=== PATIENT | female | born 1945 | race Caucasian/White ===

== ENCOUNTER 2024-06-19 12:47 | Observation (INO) | payer OTHER, SELFPAY ==
[2024-06-19] VITALS (16 sets, daily range): BP systolic 114–156; BP diastolic 52–80; PULSE 100–123; BMI 20.7; BMI 21.2
--- NOTE | 2024-06-19 02:12 | ED.GENMED ---
History of Present Illness
<Annette Belle PA-C - Last Filed: 06/24/24 10:01>
General
Chief Complaint: Fainting Sensation
Source: patient
Exam Limitations: none
Time Seen by Provider: 06/19/24 01:50
Nursing documentation reviewed up to this point in time: agreed with
History of Present Illness
History of Present Illness:
PT IS A 78 Y/O F
h/o breast ca s/p mastectomy and radiation 2019
on oral treatment
here with near syncope
says she was feeling well ealrlier in the night, played cards with friends
on walk back to her apt she was cold but it was chilly outside. she walked to her apt and got warm and drak some tea. she was feeling ready for bed, went to the bathroom and suddenly felt lightheaded. she denies that she felt dizzy but then felt
weak and lowered herself to the ground onto her buttocks, she didn't fall
sat on her bottom for a little and scooted forward to get her phone to call 911
she now feels ok, denies pain, headache, cp,s ob, cough, cold symptoms, urinary sypmptoms, vomiting, nausea, diarreha
she had a near passing out episode one other time last year when she had diarrhea
she feels a little shaky here, but thinks she is anxious
Past History
<Annette Belle PA-C - Last Filed: 06/24/24 10:01>
Past History
ED Past Medical History: Cancer
ED Past Surgical History: Gynecological (mastectomy)
Social History
Tobacco: Non-smoker
Alcohol: None
Drug: None
Personal: Single
Living: alone
Review of Systems
<Annette Belle PA-C - Last Filed: 06/24/24 10:01>
Review of Systems
Allergies reviewed?: Yes
All Other Systems: Not applicable
Phy Exam
<Annette Belle PA-C - Last Filed: 06/24/24 10:01>
Physical Exam
Physical Exam:
GENERAL: Alert , in no apparent distress, nontoxic appearing
EYE: pupils equal and reactive
NECK: Supple
ENT: o/p clr, mmm.
CARDIAC: tachycardic, no edema
LUNGS: Clear breath sounds bilaterally, no acute respiratory distress, no wheezes/rales/rhonchi
ABDOMEN: Soft, without focal tenderness, no r/g, no cvat, normal bowel sounds
NEUROLOGICAL: Alert and oriented, no focal neuro deficits
SKIN: Warm and dry, skin intact. no obvious rash
MUSCULOSKELETAL: No edema, well perfused. neg meng's sign
PSYCH: Normal and appropriate interaction.
Course
<Annette Belle PA-C - Last Filed: 06/24/24 10:01>
Orders/Labs/Results
Orders:
Orders
06/19/24 01:49
Electrocardiogram (*1) Urgent
Reason for Study: Chest Pain
Cardiac Monitoring- Treatment ONCE
EKG- Treatment ONCE
IV Insert/Care/Rem.- Treatment PRN
O2 Therapy [RESP] Urgent
Titrate/Wean O2 to maintain O2 sat greater than (%): 90
Special Instructions: Maintain sats >/=90%
Pulse Ox/spot Check [RESP] Urgent
Quantity: 1
Special Instructions: ON ROOM AIR
06/19/24 02:10
Basic Metabolic Panel Urgent
Complete Blood Count/With Diff Urgent
06/19/24 02:11
Orthostatic VS- Treatment ONCE
06/19/24 02:31
0.9% Sodium Chloride 500 ml [Nss] 500 ml IV BOLUS
06/19/24 02:35
Acetaminophen [Tylenol] 650 mg PO NOW STA
06/19/24 03:02
COVID-19 Antigen Urgent
Source: Nasal Swab
Lactic Acid Urgent
Blood Culture Urgent
ORIN Source: Blood/Venous
Specimen Description:
Influenza A+B Rapid Molecular Urgent
ORIN Source: Nasal Swab
Specimen Description:
06/19/24 03:43
Urinalysis Reflex To Culture Urgent
Date Specimen was Collected: 06/19/24
Time Specimen was Collected: 03:42
Urine Microscopic Reflex Cult Urgent
06/19/24 05:15
CR Chest - 2 Views Urgent
Comment:
Reason For Exam: acute fever, cough
06/19/24 06:35
Encourage PO Hydration-Treatme ONCE
06/19/24 Lunch
Regular
At Your Request: Full Participation
Does patient need a safe tray?: No
06/19/24 10:12
US Periph Venous LOWER Ext Dain Urgent
Comment:
Reason For Exam: fever
06/19/24 11:49
Admit/Transfer Patient As Directed
Co-Sign Provider:
Level of Care: Observation services
Assign to:: Telemetry
Physician / Group: Dr. Noman Tai
Diagnosis: Fever, weakness
Reason for Telemetry: Arrhythmia
Date to Stop Telemetry: 06/22/24
Time to Stop Telemetry: 11:00
PRN Pain Medication Management As Directed
May give lesser potent ordered pain med per pt: Yes
preference::
Protocol:: Medication orders for pain may be administered in a
manner that supports deferring to patient preference
when the pt is:
- Requesting an ordered lesser potent pain medication.
Least to most potent pain medications are defined
as: acetaminophen < NSAID < tramadol < opioids
(morphine, oxycodone, hydromorphone).
- Requesting a lesser dose of the same medication IF
ORDERED.
- Requesting a less intrusive route of administration
if both routes are prescribed by the provider (PO <
IV).
06/19/24 11:51
Code Status As Directed
Resuscitation Status: Full Code
06/19/24 11:54
CT Chest Pe Study Routine
Comment:
Reason For Exam: PE
06/19/24 11:56
Echo 2D MMode Color/Doppler Routine
Reason for Study: Weakness, lightheadedness
Orthostatic Vital Signs As Directed
Orthostatic VS Frequency: BID
06/19/24 11:57
Ot Eval And Treat Routine
Pt Eval And Treat Routine
Activity Level: As Tolerated
06/19/24 15:45
Acetaminophen [Tylenol] 650 mg PO Q6HPRN PRN
Bisacodyl [Dulcolax] 10 mg RECTAL [id number] PRN
Docusate W/Senna [Senokot-S] 1 tablet PO BIDPRN PRN
Polyethylene Glycol Powder [Miralax] 17 grams PO DAILYPRN PRN
06/19/24 15:45
Activity As Directed
Activity Level: As Tolerated
Pneumatic Compression Sleeves As Directed
Type: Knee high
Vital Signs As Directed
Frequency: Per unit guidelines
DX Deep Vein Thrombosis Video Routine
06/19/24 16:04
Troponin I Q6H
Blood Culture Routine
ORIN Source: Blood/Venous
Specimen Description:
06/19/24 18:00
Enoxaparin Sodium [Lovenox] 40 mg SC QPM
06/19/24 20:00
Calcium Carbonate/Vitamin D3 [Oscal 500 + D] 500 mg PO BID
06/19/24 22:00
Latanoprost [Xalatan Ophthalmic Solution] 1 drop BOTH EYES HS
06/19/24 22:32
Troponin I Q6H
06/20/24 03:45
Troponin I Q6H
06/20/24 08:00
Anastrozole [Arimidex] 1 mg PO DAILY
Cholecalciferol (Vitamin D3) [VITAMIN D3 (cholecalciferol)] 25 mcg PO DAILY
Magnesium Oxide 250 mg PO DAILY
06/20/24 09:29
Complete Blood Count/With Diff IN AM
Comprehensive Metabolic Panel IN AM
Magnesium IN AM
06/22/24 11:00
DC Protocol for Telemetry ONCE
Abnormal Lab Results
06/19/24 06/19/24
02:10 03:43
MCH 31.7 H pg
(27.0-31.0)
MPV 10.5 H fL
(7.4-10.4)
Absolute Neuts (auto) 6.9 H 10^3/uL
(1.4-6.5)
Absolute Lymphs (auto) 0.6 L 10^3/uL
(1.2-3.4)
Neutrophils % 85.8 H %
(42.2-75.2)
Lymphocytes % 6.9 L %
(20.5-51.1)
Creatinine 0.5 L mg/dL
(0.6-1.0)
Glucose 161 H mg/dl
(70-99)
Leukocyte Esterase Rfl Trace A
(Negative)
Urine Bacteria (Reflex) Few A
(Negative)
06/19/24 02:10
06/19/24 02:10
Vital Signs
Initial and Last Documented VS:
Initial Vital Signs
Temp Pulse Resp BP Pulse Ox
98.4 F 111 15 149/73 98
06/19/24 02:00 06/19/24 02:00 06/19/24 02:00 06/19/24 02:00 06/19/24 02:00
Last Documented Vital Signs
Temp Pulse Resp BP Pulse Ox
98.4 F 89 19 127/68 95
06/20/24 11:00 06/20/24 11:00 06/20/24 11:00 06/20/24 11:00 06/20/24 11:00
<Piper Mar, DO - Last Filed: 06/19/24 06:37>
Orders/Labs/Results
Orders:
Orders
06/19/24 01:49
Electrocardiogram (*1) Urgent
Reason for Study: Chest Pain
Cardiac Monitoring- Treatment ONCE
EKG- Treatment ONCE
IV Insert/Care/Rem.- Treatment PRN
O2 Therapy [RESP] Urgent
Titrate/Wean O2 to maintain O2 sat greater than (%): 90
Special Instructions: Maintain sats >/=90%
Pulse Ox/spot Check [RESP] Urgent
Quantity: 1
Special Instructions: ON ROOM AIR
06/19/24 02:10
Basic Metabolic Panel Urgent
Complete Blood Count/With Diff Urgent
06/19/24 02:11
Orthostatic VS- Treatment ONCE
06/19/24 02:31
0.9% Sodium Chloride 500 ml [Nss] 500 ml IV BOLUS
06/19/24 02:35
Acetaminophen [Tylenol] 650 mg PO NOW STA
06/19/24 03:02
COVID-19 Antigen Urgent
Source: Nasal Swab
Lactic Acid Urgent
Blood Culture Urgent
ORIN Source: Blood/Venous
Specimen Description:
Influenza A+B Rapid Molecular Urgent
ORIN Source: Nasal Swab
Specimen Description:
06/19/24 03:43
Urinalysis Reflex To Culture Urgent
Date Specimen was Collected: 06/19/24
Time Specimen was Collected: 03:42
Urine Microscopic Reflex Cult Urgent
06/19/24 05:15
CR Chest - 2 Views Urgent
Comment:
Reason For Exam: acute fever, cough
06/19/24 06:35
Encourage PO Hydration-Treatme ONCE
06/19/24 Lunch
Regular
At Your Request: Full Participation
Does patient need a safe tray?: No
06/19/24 10:12
US Periph Venous LOWER Ext Dain Urgent
Comment:
Reason For Exam: fever
06/19/24 11:49
Admit/Transfer Patient As Directed
Co-Sign Provider:
Level of Care: Observation services
Assign to:: Telemetry
Physician / Group: Dr. Noman Tai
Diagnosis: Fever, weakness
Reason for Telemetry: Arrhythmia
Date to Stop Telemetry: 06/22/24
Time to Stop Telemetry: 11:00
PRN Pain Medication Management As Directed
May give lesser potent ordered pain med per pt: Yes
preference::
Protocol:: Medication orders for pain may be administered in a
manner that supports deferring to patient preference
when the pt is:
- Requesting an ordered lesser potent pain medication.
Least to most potent pain medications are defined
as: acetaminophen < NSAID < tramadol < opioids
(morphine, oxycodone, hydromorphone).
- Requesting a lesser dose of the same medication IF
ORDERED.
- Requesting a less intrusive route of administration
if both routes are prescribed by the provider (PO <
IV).
06/19/24 11:51
Code Status As Directed
Resuscitation Status: Full Code
06/19/24 11:54
CT Chest Pe Study Routine
Comment:
Reason For Exam: PE
06/19/24 11:56
Echo 2D MMode Color/Doppler Routine
Reason for Study: Weakness, lightheadedness
Orthostatic Vital Signs As Directed
Orthostatic VS Frequency: BID
06/19/24 11:57
Ot Eval And Treat Routine
Pt Eval And Treat Routine
Activity Level: As Tolerated
06/19/24 15:45
Acetaminophen [Tylenol] 650 mg PO Q6HPRN PRN
Bisacodyl [Dulcolax] 10 mg RECTAL [id number] PRN
Docusate W/Senna [Senokot-S] 1 tablet PO BIDPRN PRN
Polyethylene Glycol Powder [Miralax] 17 grams PO DAILYPRN PRN
06/19/24 15:45
Activity As Directed
Activity Level: As Tolerated
Pneumatic Compression Sleeves As Directed
Type: Knee high
Vital Signs As Directed
Frequency: Per unit guidelines
DX Deep Vein Thrombosis Video Routine
06/19/24 16:04
Troponin I Q6H
Blood Culture Routine
ORIN Source: Blood/Venous
Specimen Description:
06/19/24 18:00
Enoxaparin Sodium [Lovenox] 40 mg SC QPM
06/19/24 20:00
Calcium Carbonate/Vitamin D3 [Oscal 500 + D] 500 mg PO BID
06/19/24 22:00
Latanoprost [Xalatan Ophthalmic Solution] 1 drop BOTH EYES HS
06/19/24 22:32
Troponin I Q6H
06/20/24 03:45
Troponin I Q6H
06/20/24 08:00
Anastrozole [Arimidex] 1 mg PO DAILY
Cholecalciferol (Vitamin D3) [VITAMIN D3 (cholecalciferol)] 25 mcg PO DAILY
Magnesium Oxide 250 mg PO DAILY
06/20/24 09:29
Complete Blood Count/With Diff IN AM
Comprehensive Metabolic Panel IN AM
Magnesium IN AM
06/22/24 11:00
DC Protocol for Telemetry ONCE
Abnormal Lab Results
06/19/24 06/19/24
02:10 03:43
MCH 31.7 H pg
(27.0-31.0)
MPV 10.5 H fL
(7.4-10.4)
Absolute Neuts (auto) 6.9 H 10^3/uL
(1.4-6.5)
Absolute Lymphs (auto) 0.6 L 10^3/uL
(1.2-3.4)
Neutrophils % 85.8 H %
(42.2-75.2)
Lymphocytes % 6.9 L %
(20.5-51.1)
Creatinine 0.5 L mg/dL
(0.6-1.0)
Glucose 161 H mg/dl
(70-99)
Leukocyte Esterase Rfl Trace A
(Negative)
Urine Bacteria (Reflex) Few A
(Negative)
06/19/24 02:10
06/19/24 02:10
Vital Signs
Initial and Last Documented VS:
Initial Vital Signs
Temp Pulse Resp BP Pulse Ox
98.4 F 111 15 149/73 98
06/19/24 02:00 06/19/24 02:00 06/19/24 02:00 06/19/24 02:00 06/19/24 02:00
Last Documented Vital Signs
Temp Pulse Resp BP Pulse Ox
98.4 F 89 19 127/68 95
06/20/24 11:00 06/20/24 11:00 06/20/24 11:00 06/20/24 11:00 06/20/24 11:00
Luislt;Stefan Valdez DO - Last Filed: 06/19/24 10:14>
Orders/Labs/Results
Orders:
Orders
06/19/24 01:49
Electrocardiogram (*1) Urgent
Reason for Study: Chest Pain
Cardiac Monitoring- Treatment ONCE
EKG- Treatment ONCE
IV Insert/Care/Rem.- Treatment PRN
O2 Therapy [RESP] Urgent
Titrate/Wean O2 to maintain O2 sat greater than (%): 90
Special Instructions: Maintain sats >/=90%
Pulse Ox/spot Check [RESP] Urgent
Quantity: 1
Special Instructions: ON ROOM AIR
06/19/24 02:10
Basic Metabolic Panel Urgent
Complete Blood Count/With Diff Urgent
06/19/24 02:11
Orthostatic VS- Treatment ONCE
06/19/24 02:31
0.9% Sodium Chloride 500 ml [Nss] 500 ml IV BOLUS
06/19/24 02:35
Acetaminophen [Tylenol] 650 mg PO NOW STA
06/19/24 03:02
COVID-19 Antigen Urgent
Source: Nasal Swab
Lactic Acid Urgent
Blood Culture Urgent
ORIN Source: Blood/Venous
Specimen Description:
Influenza A+B Rapid Molecular Urgent
ORIN Source: Nasal Swab
Specimen Description:
06/19/24 03:43
Urinalysis Reflex To Culture Urgent
Date Specimen was Collected: 06/19/24
Time Specimen was Collected: 03:42
Urine Microscopic Reflex Cult Urgent
06/19/24 05:15
CR Chest - 2 Views Urgent
Comment:
Reason For Exam: acute fever, cough
06/19/24 06:35
Encourage PO Hydration-Treatme ONCE
06/19/24 Lunch
Regular
At Your Request: Full Participation
Does patient need a safe tray?: No
06/19/24 10:12
US Periph Venous LOWER Ext Dain Urgent
Comment:
Reason For Exam: fever
06/19/24 11:49
Admit/Transfer Patient As Directed
Co-Sign Provider:
Level of Care: Observation services
Assign to:: Telemetry
Physician / Group: Dr. Noman Tia
Diagnosis: Fever, weakness
Reason for Telemetry: Arrhythmia
Date to Stop Telemetry: 06/22/24
Time to Stop Telemetry: 11:00
PRN Pain Medication Management As Directed
May give lesser potent ordered pain med per pt: Yes
preference::
Protocol:: Medication orders for pain may be administered in a
manner that supports deferring to patient preference
when the pt is:
- Requesting an ordered lesser potent pain medication.
Least to most potent pain medications are defined
as: acetaminophen < NSAID < tramadol < opioids
(morphine, oxycodone, hydromorphone).
- Requesting a lesser dose of the same medication IF
ORDERED.
- Requesting a less intrusive route of administration
if both routes are prescribed by the provider (PO <
IV).
06/19/24 11:51
Code Status As Directed
Resuscitation Status: Full Code
06/19/24 11:54
CT Chest Pe Study Routine
Comment:
Reason For Exam: PE
06/19/24 11:56
Echo 2D MMode Color/Doppler Routine
Reason for Study: Weakness, lightheadedness
Orthostatic Vital Signs As Directed
Orthostatic VS Frequency: BID
06/19/24 11:57
Ot Eval And Treat Routine
Pt Eval And Treat Routine
Activity Level: As Tolerated
06/19/24 15:45
Acetaminophen [Tylenol] 650 mg PO Q6HPRN PRN
Bisacodyl [Dulcolax] 10 mg RECTAL [id number] PRN
Docusate W/Senna [Senokot-S] 1 tablet PO BIDPRN PRN
Polyethylene Glycol Powder [Miralax] 17 grams PO DAILYPRN PRN
06/19/24 15:45
Activity As Directed
Activity Level: As Tolerated
Pneumatic Compression Sleeves As Directed
Type: Knee high
Vital Signs As Directed
Frequency: Per unit guidelines
DX Deep Vein Thrombosis Video Routine
06/19/24 16:04
Troponin I Q6H
Blood Culture Routine
ORIN Source: Blood/Venous
Specimen Description:
06/19/24 18:00
Enoxaparin Sodium [Lovenox] 40 mg SC QPM
06/19/24 20:00
Calcium Carbonate/Vitamin D3 [Oscal 500 + D] 500 mg PO BID
06/19/24 22:00
Latanoprost [Xalatan Ophthalmic Solution] 1 drop BOTH EYES HS
06/19/24 22:32
Troponin I Q6H
06/20/24 03:45
Troponin I Q6H
06/20/24 08:00
Anastrozole [Arimidex] 1 mg PO DAILY
Cholecalciferol (Vitamin D3) [VITAMIN D3 (cholecalciferol)] 25 mcg PO DAILY
Magnesium Oxide 250 mg PO DAILY
06/20/24 09:29
Complete Blood Count/With Diff IN AM
Comprehensive Metabolic Panel IN AM
Magnesium IN AM
06/22/24 11:00
DC Protocol for Telemetry ONCE
Abnormal Lab Results
06/19/24 06/19/24
02:10 03:43
MCH 31.7 H pg
(27.0-31.0)
MPV 10.5 H fL
(7.4-10.4)
Absolute Neuts (auto) 6.9 H 10^3/uL
(1.4-6.5)
Absolute Lymphs (auto) 0.6 L 10^3/uL
(1.2-3.4)
Neutrophils % 85.8 H %
(42.2-75.2)
Lymphocytes % 6.9 L %
(20.5-51.1)
Creatinine 0.5 L mg/dL
(0.6-1.0)
Glucose 161 H mg/dl
(70-99)
Leukocyte Esterase Rfl Trace A
(Negative)
Urine Bacteria (Reflex) Few A
(Negative)
06/19/24 02:10
06/19/24 02:10
Vital Signs
Initial and Last Documented VS:
Initial Vital Signs
Temp Pulse Resp BP Pulse Ox
98.4 F 111 15 149/73 98
06/19/24 02:00 06/19/24 02:00 06/19/24 02:00 06/19/24 02:00 06/19/24 02:00
Last Documented Vital Signs
Temp Pulse Resp BP Pulse Ox
98.4 F 89 19 127/68 95
06/20/24 11:00 06/20/24 11:00 06/20/24 11:00 06/20/24 11:00 06/20/24 11:00
<Annette Belle PA-C - Last Filed: 06/24/24 10:01>
MDM/Problems Addressed
Differential Diagnosis Includes:
sepsis, bacteremia, uti, covid, flu, near syncope
MDM/Problems Addressed:
78 y/o F
breast ca
here with near syncope and shaking chills
she started with chills ffirst but presumed it was due to walking outside int he cold
she then got warm and watched tv for a little
when she got up she walked to the [place] nd felt lighhteaded and then didn't have the strength and sat on the groun
no LOC
no preceeding cp, sob
she feels well now
tachycardic but initially afebrile
rectal temp + 101
brando w/u for bacteremia/sepsis
ekg is sinus tach with L axis deviation no old ekg; no st elevation/depression
signed out to dr. mar.
<Piper Mar DO - Last Filed: 06/19/24 06:37>
*Radiology
Radiology exam reviewed: preliminary read by ED provider (Chest x-ray is unremarkable. No evidence of infiltrate.)
*Pulse Oximetry
Patient hypoxic: no
*EKG
Interpreted by ED Provider?: Yes
Comparison EKG: no comparison EKG present
Rate: tachycardiac
Rhythm: sinus
Lima: left axis deviation
Interval: normal interval
QRS Pattern: poor R-wave progression
Ischemia: no ischemia
*Mucker Operator Interpretation
Rate: tachycardiac
Interpretation: abnormal
Rhythm: sinus
*Critical Care Note
Total Time (30-74mins, 75-104mins- exclusive of procedures): Not Applicable
<DO Melissa Lovell Last Filed: 06/19/24 10:14>
Update Note
Update Note:
0951---Pt's ride arrived and when pt was helped up to be discharged she was observed to be too weak to stand or walk on her own. Pt lives alone and is typically very active. She does no use a cane or walker. Work-up thus far does not show source
for fever. Pt not safe for discharge. Will discuss hospitalization with hospitalist. Oral temp normal but will recheck rectal temp
ED Attending Note
<Annette Belle PA-C - Last Filed: 06/24/24 10:01>
-
Portions of this chart may have been created with voice recognition software.� Occasional wrong word or��sound alike� substitutions may have occurred due to the inherent limitations of voice recognition software.
<Piper Mar DO - Last Filed: 06/19/24 06:37>
ED Attending Note
Patient seen and examined by attending physician: Yes
I performed a history and physical exam of patient and discussed management with resident, I reviewed resident's note and agree with documented findings and plan of care.: Yes
ED Attending Note:
This is a 78-year-old woman who resides at home alone, independently. She has history of breast cancer status post left mastectomy 2018, adjuvant XRT and maintained on letrozole. No history of recurrence.
She presents tonight with episode of generalized weakness, questionable near syncope, shaking chills and was found to be mildly tachycardic, warm to touch and rectal temp she was found to be acutely febrile at 101.3 �F. Patient does note rare
intermittent cough which she attributes to postnasal drip. No chest pain nor shortness of breath, no abdominal pain, no nausea nor vomiting, no dysuria and urgency and or hematuria. No rash.
78-year-old woman appears her stated age, awake and alert, pleasant, appears in no acute distress. Acutely febrile. Mildly tachycardic. Normotensive.
HEENT: Oral mucosa is moist.
Neck is supple without meningismus nor adenopathy.
Heart is regular rhythm, mildly tachycardic without murmur nor rub.
Lungs with scant rales left base otherwise clear to auscultation.
Abdomen is soft and nontender.
Acute febrile illness, concern for acute viral syndrome, bacteremia, pneumonia, UTI, febrile reaction to recent COVID booster vaccine.
Fever has been treated with an oral dose of Tylenol and will initiate IV fluids.
Labs are pending including lactic acid, urinalysis. Will check COVID and influenza. Due to shaking chills, concern for bacteremia, will check blood cultures.
Will check chest x-ray as well.
06/19/2024 0630 AM
Chest x-ray is unremarkable.
Labs are unremarkable with normal white blood cell count, unremarkable chemistries. Lactic acid is normal. Urinalysis is unremarkable. COVID and flu testing are negative.
At this point acute febrile illness appears viral in nature. Other consideration is acute fever related to bivalent COVID booster she received 2 days ago. No evidence of bacterial source but blood cultures are pending.
Will plan for discharge to home with recommendations to stay well-hydrated on a daily basis, continue Tylenol every 4 hours as needed for fever, rest.
Prompt follow-up with PCP for recheck.
Return precautions discussed.
Discharge Plan
Departure
Patient Disposition: Admit
Date of Disposition: 06/19/24
Time of Disposition: 06:35
Admit to: Med/Surg
Presentation/result/management discussed w/ accepting MD/DO: Hospitalist
Patient with high blood pressure during this ER visit?: No
Condition: Fair
Discharge Problem:
Acute febrile illness
Interventions
Interventions:
*Risk Screen - Suicide Last Done: 06/19/24 02:00
*General Assessment Last Done: 06/19/24 02:00
*Neglect/Abuse Screening Last Done: 06/19/24 02:00
ED- Fall Risk Assessment Last Done: 06/19/24 02:00
*ED COVID-19 Vaccine History Last Done: 06/19/24 02:00
*Nursing Disposition Last Done: 06/19/24 06:57
ED- Cardiac Assessment Last Done: 06/19/24 02:30
ED- Neurological Assessment Last Done: 06/19/24 02:30
Discharge Date and Time
Discharge Date/Time: 06/19/24 15:18
[2024-06-19 02:26] LABS: % Basophils 0.5 % (0-2); % Eosinophils 0.5 % (0-6); % Immature Granulocytes 0.4 % (0-0.5); % Lymphocytes 6.9 % (20.5-51.1); % Monocytes 5.9 % (1.7-9.3); % Neutrophils 85.8 % (42.2-75.2); Absolute Lymphocytes 0.6 10^3/uL (1.2-3.4); Absolute Monocytes 0.5 10^3/uL (0.1-0.6); Absolute Neutrophils 6.9 10^3/uL (1.4-6.5); Hematocrit 42.6 % (37.0-47.0); Hemoglobin 14.9 g/dL (12.0-16.0); Mean Corpuscular Hgb 31.7 pg (27.0-31.0); Mean Corpuscular Volume 90.6 fL (81.0-99.0); Mean Platelet Volume 10.5 fL (7.4-10.4); Nucleated Red Blood Cells % 0 %; Platelet Count 181 10^3/uL (130-400); Red Cell Dist. Width 11.8 % (11.5-14.5); White Blood Cell Count 8.1 10^3/uL (4.8-10.8)
[2024-06-19 02:34] LABS: Blood Urea Nitrogen 15 mg/dl (7-17); Calcium 9.5 mg/dl (8.4-10.2); Carbon Dioxide 25 mmol/L (22-30); Chloride 101 mmol/L (98-107); Estimated Creatinine Clearance 72 ml/min; Glucose 161 mg/dl (70-99); Sodium 138 mmol/L (135-145); eGFR > 60.00
[2024-06-19] MEDS: TYLENOL 650 MG PO (02:40)
[2024-06-19] MEDS: NSS 500 IV (02:41)
[2024-06-19 03:42] LABS: COVID-19 Antigen Negative (Negative)
[2024-06-19 04:02] LABS: Lactic Acid 1.7 mmol/L (0.7-2.0)
[2024-06-19 04:11] LABS: Urine Albumin Negative (Neg - Trace); Urine Bilirubin Negative (Negative); Urine Character Clear (Clear); Urine Color Yellow; Urine Glucose Negative (Negative); Urine Ketone Negative (Negative); Urine Leukocyte Trace (Negative); Urine Nitrite Negative (Negative); Urine Occult Blood Negative (Negative); Urine Urobilinogen Negative (Neg - 1+)
[2024-06-19 05:29] LABS: Urine Bacteria Few (Negative); Urine Red Blood Cell 0-2 /HPF (0-2); Urine White Cell 0-2 /HPF (0-5)
[2024-06-19 16:36] LABS: Troponin I < 0.012 ng/ml
[2024-06-19] MEDS: LOVENOX 40 MG SC (17:11)
--- NOTE | 2024-06-19 17:42 | HPS.HSE ---
Family Physician
-
Family Physician: PHYSICIAN PRIVATE
Chief Complaint
-
Fever, weakness
History of Present Illness
78 y/o female with past medical history of pre-DM, breast cancer status post lumpectomy and radiation, syncope from dehydration and postnasal drip, presented with weakness and chills. Patient said she got her COVID vaccine 2 days ago, but then the
day after the vaccine, she felt cold, rigors, lightheaded and fell to the floor onto her buttocks, but denied any loss of consciousness or head trauma. She denied having any chest pain or palpitations. She also felt 'hot.'
Medical History
Past Medical History
Past Medical History: Reports Other (As per HPI above)
Past Surgical History: Reports Gynocological (Hysterectomy) and Other (Breast Cancer Lumpectomy)
Social History
Tobacco: Non-smoker
Alcohol: None
Drug: None
Family History
Family History: Not pertinent
Allergies / Home Medications
Allergies reflects when Allergies were last updated in [employer].
Home Medications with original date entered in read[facility]
Allergy/Medication List:
Allergies
Allergy/AdvReac Type Severity Reaction Status Date / Time
clindamycin Allergy Unknown Unknown Verified 06/19/24 01:52
fish oil Allergy Hives Verified 06/19/24 01:52
glimepiride [From Amaryl] Allergy Pharmacy Verified 06/19/24 01:52
to Review
oxycodone [From Percocet] Allergy Pharmacy Verified 06/19/24 01:52
to Review
prednisone Allergy Pharmacy Verified 06/19/24 01:52
to Review
sulfamethoxazole Allergy Pharmacy Verified 06/19/24 01:52
[From Bactrim] to Review
trimethoprim [From Bactrim] Allergy Pharmacy Verified 06/19/24 01:52
to Review
Home Medications
acetaminophen 325 mg tablet 650 mg PO Q6HPRN PRN leg cramps 06/19/24
anastrozole 1 mg tablet 1 mg PO DAILY Cancer 06/19/24
calcium 500 mg-vitamin D3 200 unit-vitamin K 40 mcg chewable tablet 1 tab PO BID Supplement 06/19/24
cholecalciferol (vitamin D3) 25 mcg (1,000 unit) tablet 25 mcg PO DAILY Supplement 06/19/24
latanoprost 0.005 % eye drops 1 drp BOTH EYES HS Eye Condition 06/19/24
magnesium 250 mg tablet 250 mg PO DAILY Supplement 06/19/24
Review of Systems
-
A 12 point ROS was completed and negative except as noted: Yes
Physical Exam
Vital Signs
Vital Signs
Temp Pulse Resp BP Pulse Ox
102.3 F H 94 18 151/79 97
06/19/24 16:00 06/19/24 16:00 06/19/24 16:00 06/19/24 16:00 06/19/24 16:00
Physical Exam
General: No Apparent Distress and Conversant
HEENT: NormoCephalic and Moist mucous membranes
Respiratory: Clear
Cardiac: S1/S2 and Regular Rhythm
GI: Soft, Non Tender and Normal Bowel Sounds
Musculoskeletal: No Cyanosis and No Edema
Skin: Warm and Dry
Neuro: Awake, Alert, AO x 3 and Nonfocal/grossly intact
Psych: Calm and Intact Judgment/Insight
Laboratory Results
-
06/19/24 02:10
06/19/24 02:10
Laboratory Results
Lactic Acid 1.7 mmol/L (0.7-2.0) 06/19/24 03:02
Total Bilirubin Cancelled 06/19/24 02:10
AST Cancelled 06/19/24 02:10
ALT Cancelled 06/19/24 02:10
Alkaline Phosphatase Cancelled 06/19/24 02:10
Troponin I < 0.012 ng/ml 06/19/24 16:04
Impression/Plan
-
Assessment/Plan
Presentation with Fever, Chills and Generalized Weakness
-No obvious infectious source at this time, no cough, no UTI symptoms, COVID negative, and Influenza negative
-No VTE on CT Chest or lower extremity ultrasound
-Will consult ID
-Follow blood cultures
-Tylenol prn
-Echo, orthostatic vital signs, troponins, EKG
Pre-DM
History of breast cancer status post lumpectomy and radiation
History of syncope from dehydration and postnasal drip
DVT Prophylaxis: Lovenox and SCDs.
Code Status: Full Code
[2024-06-19] MEDS: OSCAL 500 + D 500 MG PO (20:46)
[2024-06-19] MEDS: XALATAN OPHTHALMIC SOLUTION 1 DROP BOTH EYES (20:46)
[2024-06-19 23:07] LABS: Troponin I < 0.012 ng/ml
[2024-06-20 03:12] VITALS: BP 137/66
[2024-06-20 04:26] LABS: Troponin I < 0.012 ng/ml
[2024-06-20 06:00] VITALS: BMI 19.9
[2024-06-20 07:00] VITALS: BP 152/69
[2024-06-20] MEDS: VITAMIN D3 (cholecalciferol) 25 MCG PO (07:53)
[2024-06-20] MEDS: OSCAL 500 + D 500 MG PO (07:53)
[2024-06-20] MEDS: ARIMIDEX 1 MG PO (07:53)
[2024-06-20] MEDS: MAGNESIUM OXIDE 250 MG PO (07:54)
[2024-06-20 10:18] LABS: % Lymphocytes 24.2 % (20.5-51.1); % Monocytes 13.4 % (1.7-9.3); % Neutrophils 58.4 % (42.2-75.2); Absolute Eosinophils 0.1 10^3/uL (0-0.7); Absolute Lymphocytes 0.7 10^3/uL (1.2-3.4); Absolute Monocytes 0.4 10^3/uL (0.1-0.6); Absolute Neutrophils 1.7 10^3/uL (1.4-6.5); Hematocrit 37.7 % (37.0-47.0); Hemoglobin 13.3 g/dL (12.0-16.0); Mean Corp Hgb Conc. 35.3 g/dL (33.0-37.0); Mean Corpuscular Hgb 32.7 pg (27.0-31.0); Mean Corpuscular Volume 92.6 fL (81.0-99.0); Nucleated Red Blood Cells % 0 %; Red Blood Cell Count 4.07 10^6/uL (4.20-5.40); Red Cell Dist. Width 11.9 % (11.5-14.5)
[2024-06-20 10:19] LABS: ALT (SGPT) 26 U/L (0-35); AST (SGOT) 33 U/L (14-36); Albumin 3.5 g/dl (3.5-5.0); Alkaline Phosphatase 43 U/L (38-126); Blood Urea Nitrogen 14 mg/dl (7-17); Calcium 8.7 mg/dl (8.4-10.2); Carbon Dioxide 23 mmol/L (22-30); Chloride 102 mmol/L (98-107); Estimated Creatinine Clearance 69 ml/min; Glucose 250 mg/dl (70-99); Magnesium 1.5 mg/dl (1.6-2.3); Potassium 3.8 mmol/L (3.5-5.1); Sodium 137 mmol/L (135-145); Total Bilirubin 0.7 mg/dl (0.2-1.3); Total Protein 5.8 g/dl (6.3-8.2); eGFR > 60.00
[2024-06-20 10:36] VITALS: BP 157/81; BP 166/88; BP 171/81; BP 171/83; PULSE 101; PULSE 109; PULSE 99
[2024-06-20 11:00] VITALS: BP 127/68
[2024-06-20 11:11] LABS: Mean Platelet Volume 9.9 fL (7.4-10.4); Platelet Count 137 10^3/uL (130-400)
--- NOTE | 2024-06-20 14:08 | CM ---
factory maintenance manager reviewed patient's chart and met with patient and patient lives alone in an apartment, patient is independent with adl's and ambulation, no dme, no dme, patient was seen by physical therapy and patient is ambulating 400 feet without
assisted device.
Plan; Home no needs. [facility] letter provided to patient.
PCP: Patient is not sure of the name as he is a new doctor
Pharmacy; [facility]
--- NOTE | 2024-06-20 16:13 | CON.ID ---
Consultation
-
Date/Time Consultation Requested: 06/19/2024 1753
Date/Time Consultation Performed: 06/20/2024 1400
Requesting Provider: Dr. Tai
Performing Provider: Dr. Huston
Reason for Consultation: Febrile episode
Chief Complaint / Past History
History of Present Illness
Tammy Sheridan is a 78-year-old female being evaluated the request of Dr. Tai regarding fever. History is obtained from chart review, along with patient interview.
The patient reports that she recently received the COVID 19 booster (approximately 2 days prior to admission). She presented to [facility] the press technician hours of 06/19, noting that earlier in the evening she had the onset of chills, and
also felt that she may have been shaking. She recalls that she had tea to warm herself up, but when she went to her bedroom she became lightheaded and pre-syncopal. She denies loss of consciousness, though. She was able to get to a phone and
called 911 and was brought to the hospital. Here she was found to have a temperature transiently, and Infectious Diseases is asked to comment upon further workup.
At this time, she reports no recurrence of the fevers, or chills. She denies any headache. She denies any shortness of breath or cough. She denies any abdominal pain, nausea, vomiting or diarrhea.
Past History
Additional Past Medical History:
Left breast cancer
Additional Past Surgical History:
Lumpectomy
NASEEM
Allergy History:
clindamycin Allergy (Verified 06/19/24 17:55)
'sick'
fish oil Allergy (Verified 06/19/24 01:52)
Hives
glimepiride [From Amaryl] Allergy (Verified 06/19/24 17:55)
dizziness
oxycodone [From Percocet] Allergy (Verified 06/19/24 17:55)
muscle spasms
prednisone Allergy (Verified 06/19/24 17:55)
'hyper'
sulfamethoxazole [From Bactrim] Allergy (Verified 06/19/24 17:55)
diarrhea
trimethoprim [From Bactrim] Allergy (Verified 06/19/24 17:55)
diarrhea
Medications Reviewed: Yes
Current Antibiotics:
None
Social History
Tobacco: Non-Smoker
Alcohol: None
Drug: None
Personal: Single
Living: Alone
Employment: Retired
Review of Systems
Vital Signs
Temp Pulse Resp BP Pulse Ox
98.4 F 89 19 127/68 95
06/20/24 11:00 06/20/24 11:00 06/20/24 11:00 06/20/24 11:00 06/20/24 11:00
Physical Exam
Physical Exam
Constitutional: No Acute Distress, Comfortable and Non-toxic
Eyes: Pupils Equal, Pupils Round, No Conjunctival Hemorrhage and Sclera Anicteric
Oral: No Thrush and No Ulcers
Cardiovascular: Regular Rate and S1/S2; Negative Murmur or Rub
Pulmonary: Clear and Symmetric; Negative Wheezes, Rales or Rhonchi
Gastrointestinal: Soft, Non Tender, Non Distended and Normal Bowel Sounds
Skin: Warm and Dry; Negative Rash or Jaundice
Neurological: Awake, Alert and Oriented
Psychological: Calm
Lab / Diagnostic Study Results
06/20/24 09:29
06/20/24 09:29
Abs Immat Gran (auto) 0.0 10^3/uL (0-0.05) 06/20/24 09:29
Absolute Neuts (auto) 1.7 10^3/uL (1.4-6.5) 06/20/24 09:29
Absolute Lymphs (auto) 0.7 10^3/uL (1.2-3.4) L 06/20/24 09:29
Absolute Monos (auto) 0.4 10^3/uL (0.1-0.6) 06/20/24 09:29
Absolute Basos (auto) 0.0 10^3/uL (0-0.2) 06/20/24:
Immature Gran % 0.0 % (0-0.5) 06/20/24 09:
Neutrophils % 58.4 % (42.2-75.2) 06/20/24:
Lymphocytes % 24.2 % (20.5-51.1) 06/20/24:
Monocytes % 13.4 % (1.7-9.3) H 06/20/24:
Eosinophils % 3.0 % (0-6) 06/20/24:
Basophils % 1.0 % (0-2) 06/20/24:
Lactic Acid 1.7 mmol/L (0.7-2.0) 06/19/24 03:02
Ur Squamous Epith Cells 3-5 /LPF (Few) 06/19/24 03:43
Microbiology Results
Micro:
06/19/24 16:04 Blood Culture - Preliminary
Blood/Venous No Growth in 24 hours- Final report to follow
06/19/24 03:02 Blood Culture - Preliminary
Blood/Venous No Growth in 24 hours- Final report to follow
06/19/24 17:32 MRSA Screen - Pending
Nose
06/19/24 03:02 Influenza Types A & B (BART) - Final
Nasal Swab Negative for Influenza A & B, NAAT
Negative results must be combined with clinical observations
and patient history.
Nucleic Acid Amplification test (NAAT)performed on the
[employer] platform.
Imaging:
06/19/2024 CT chest (PE study): No CT evidence for acute pulmonary thromboembolism noted. No focal consolidation, pleural effusion or pneumothorax is noted. Please see full dictation for additional detail. Film personally viewed.
Assessment / Plan
Febrile episode; resolved
Near syncopal event
Hx breast CA
Recommendations:
Given proximity of events to COVID vaccination, suspect the vaccine aftereffects were the etiology.
No evidence of infectious process at present, and fevers have abated.
Would continue to monitor off of antibiotics at this time.
Leukopenia noted, would continue to monitor, which can be performed as an outpatient.
Care Review
Plan reviewed with: Physician (Hospitalist)
--- NOTE | 2024-06-20 16:43 | W.PN.HOSP.TC ---
Today's Communication/Plan
-
Discharge today
Assessment / Plan
Assessment / Plan
Physical Exam
General: No Apparent Distress and Conversant
HEENT: Normocephalic and Moist mucous membranes
Respiratory: Clear
Cardiac: S1/S2 and Regular Rhythm
GI: Soft, Non Tender and Normal Bowel Sounds
Musculoskeletal: No Cyanosis and No Edema
Skin: Warm and Dry
Neuro: Awake, Alert, AO x 3 and Nonfocal/grossly intact
Psych: Calm and Intact Judgment/Insight
Assessment/Plan
Presentation with Fever, Chills and Generalized Weakness -- suspected secondary to COVID vaccination after effects
-No obvious infectious source at this time, no cough, no UTI symptoms, COVID negative, and Influenza negative
-No VTE on CT Chest or lower extremity ultrasound
-ID consulted, nothing else needs to be done at this time
-Follow blood cultures outpatient
-Tylenol prn
-Echo okay, orthostatic vital signs negative
First Degree AV Block
-Follow-up with PCP, recheck EKG with them
Leukopenia -- follow-up with PCP
Pre-DM
History of breast cancer status post lumpectomy and radiation
History of syncope from dehydration and postnasal drip
Borderline Low Magnesium
-Increase magnesium dosage on discharge
DVT Prophylaxis: Lovenox and SCDs.
Code Status: Full Code
More than 30 minutes spent in discharge including
Final examination of the patient
Summarizing hospital stay
Instructions for continuing care to all relevant caregivers
Preparation of discharge records, prescriptions, and referral forms
Total time spent (in minutes): 40
Anticipated Discharge: Today
Subjective/Interval History
-
Date of Service: June 20, 2024
Patient was seen and examined. She denied any fever overnight, chest pain or shortness of breath.
Objective Data
-
Labs:
Laboratory Results
06/20/24
09:29
WBC 3.0 L
Hgb 13.3
Hct 37.7
Plt Count 137 D
Sodium 137
Potassium 3.8
Chloride 102
Carbon Dioxide 23
BUN 14
Creatinine 0.6
Glucose 250 H
Calcium 8.7
Total Bilirubin 0.7
AST 33
ALT 26
Alkaline Phosphatase 43
Vital Signs:
Vital Signs
Temp Pulse Resp BP Pulse Ox
98.4 F 89 19 127/68 95
06/20/24 11:00 06/20/24 11:00 06/20/24 11:00 06/20/24 11:00 06/20/24 11:00
I&O
06/19/24 06/20/24 06/21/24
06:59 06:59 06:59
Intake Total 720 / 720
Balance 720 / 720
== END 2024-06-20 18:18 | disposition home or self-care (01) ==
LOC: 4 WEST ACU 12:47
PROVIDERS: Physician Assistant; ADMITTING PHYSICIAN Hospitalist; EMERGENCY PHYSICIAN Emergency Medicine; OTHER PHYSICIAN Internal Medicine Infectious Disease
DX: R55 Syncope and collapse (principal); R42 Dizziness and giddiness; R53.1 Weakness; R05.9 Cough, unspecified; D72.819 Decreased white blood cell count, unspecified; I44.0 Atrioventricular block, first degree; E83.42 Hypomagnesemia; E11.9 Type 2 diabetes mellitus without complications; R09.82 Postnasal drip; R50.9 Fever, unspecified; R07.9 Chest pain, unspecified; R00.0 Tachycardia, unspecified; Z60.2 Problems related to living alone; Z90.12 Acquired absence of left breast and nipple; Z79.811 Long term (current) use of aromatase inhibitors; Z88.1 Allergy status to other antibiotic agents; Z92.3 Personal history of irradiation; Z85.3 Personal history of malignant neoplasm of breast; Z88.5 Allergy status to narcotic agent; Z88.2 Allergy status to sulfonamides; Z88.8 Allergy status to other drugs, medicaments and biological substances; Z11.52 Encounter for screening for COVID-19
CPT/HCPCS: 71046; 71275; 80048; 80053; 81003; 81015; 83605; 83735; 84484; 85025; 87040; 87070; 87502; 87811; 93005; 93306; 93970; 94760; 96360; 97116; 97161; 97165; 99285; G0378; Q9967

== ENCOUNTER 2024-10-13 09:46 | Emergency (ER) | payer OTHER, SELFPAY ==
[2024-10-13] VITALS (8 sets, daily range): BP systolic 138–190; BP diastolic 69–85; PULSE 78–84
--- NOTE | 2024-10-13 10:19 | ED.GENMED ---
History of Present Illness
General
Chief Complaint: Blood Pressure Problem
Time Seen by Provider: 10/13/24 10:05
History of Present Illness
History of Present Illness:
71 female presents to the emergency department for ration of acute onset vertigo beginning this morning upon awakening. She states she woke up and rolled onto her right side before sitting up and began to feel profoundly dizzy. She was able to get
up and walk after several minutes and felt off balance, she describes it as feeling 'drunk'. She states she has never had similar symptoms before. No chest pain, dyspnea, nausea, or vomiting. She is also concerned that her blood pressure was very
elevated upon arrival of EMS. Currently has no symptoms. Denies any recent fevers or chills, denies any recent vomiting or diarrhea, no new medication changes.
Past History
Past History
ED Past Medical History: Cancer
ED Past Surgical History: Gynecological (mastectomy)
Social History
Tobacco: Non-smoker
Alcohol: None
Drug: None
Personal: Single
Living: alone
Review of Systems
Review of Systems
Allergies reviewed?: Yes
All Other Systems: ROS reviewed and negative except as documented in HPI and ROS
Phy Exam
Physical Exam
Physical Exam:
GEN: Well appearing, NAD, WDWN
HEENT: Oral mucosa moist, no scleral icterus, no nasal congestion
Cardiac: Regular rate and rhythm, no murmurs
Lung: No respiratory distress, no tachypnea
MSK: No gross deformity or injuries
Skin: Good color, no pallor or jaundice, no rashes
Neuro: AO x3; CN II-XII grossly intact. BUE strength 5/5 in all gray, sensation intact and symmetric. BLE strength 5/5 in all gray, sensation intact and symmetric. [id number] normal and [id number] normal
Psych: Calm, cooperative
Course
Orders/Labs/Results
Orders:
Orders
10/13/24 10:19
Electrocardiogram (*1) Urgent
Reason for Study: Vertigo / Dizzy
EKG- Treatment ONCE
10/13/24 10:21
Complete Blood Count/No Diff Urgent
Comprehensive Metabolic Panel Urgent
Abnormal Lab Results
10/13/24
10:21
WBC 4.2 L 10^3/uL
(4.8-10.8)
MCH 32.1 H pg
(27.0-31.0)
BUN 22 H mg/dl
(7-17)
Glucose 230 H mg/dl
(70-99)
AST 42 H U/L
(14-36)
ALT 49 H U/L
(0-35)
10/13/24 10:21
10/13/24 10:21
Vital Signs
Initial and Last Documented VS:
Initial Vital Signs
Temp Pulse Resp BP Pulse Ox
98.3 F 94 16 180/78 98
10/13/24 09:50 10/13/24 09:50 10/13/24 09:50 10/13/24 09:50 10/13/24 09:50
Last Documented Vital Signs
Temp Pulse Resp BP Pulse Ox
98.3 F 72 15 138/69 97
10/13/24 09:50 10/13/24 11:04 10/13/24 11:04 10/13/24 11:04 10/13/24 11:04
MDM/Problems Addressed
MDM/Problems Addressed:
Vertigo remains on provokable in the ED. She is not orthostatic. Very likely benign positional vertigo based on patient's description of symptoms. She is neurologically intact and there is no indication for CT of the head. Blood pressure
normalized in the ED. She is noted to be mildly hyperglycemic with to just prior to arrival, educated portance of follow-up with primary care physician to discuss blood pressure and blood sugar concerns, no immediate need for antidiabetic
medication therapies
Comment
Comment:
KG independently interpreted by me shows a normal sinus rhythm with a first-degree AV block but no ST changes concerning for ischemia
*Critical Care Note
Total Time (30-74mins, 75-104mins- exclusive of procedures): Not Applicable
ED Attending Note
-
Portions of this chart may have been created with voice recognition software.� Occasional wrong word or��sound alike� substitutions may have occurred due to the inherent limitations of voice recognition software.
Discharge Plan
Departure
Patient Disposition: Home (Routine Discharge)
Date of Disposition: 10/13/24
Time of Disposition: 11:07
Patient with high blood pressure during this ER visit?: Yes
Discharge Problem:
Vertigo
Instructions: Vertigo ED
Prescriptions:
No Action
anastrozole 1 mg Tablet
1 mg PO DAILY
cholecalciferol (vitamin D3) 25 mcg (1,000 unit) Tablet
25 mcg PO DAILY
calcium-vitamin D3-vitamin K 500 mg-200 unit -40 mcg Tablet,Chewable
1 tab PO BID
Patient Comments:
pt.'s list states, 'Viactiv Calcium 65 mg BID'
latanoprost 0.005 % Drops
1 drp BOTH EYES HS
acetaminophen 325 mg Tablet
650 mg PO Q6HPRN PRN (Reason: leg cramps)
magnesium oxide 500 mg magnesium Tablet
500 mg PO DAILY Qty: 10 0RF
Referrals:
Tino Villagomez MD [Family Provider] -
Activity Restrictions/Additional Instructions:
As we discussed your blood pressure was elevated likely due to stressors and symptoms however normalized prior to discharge. In addition your blood sugar was somewhat elevated however you had eaten a carbohydrate rich meal before coming to the ER.
Both of these will require follow-up with your primary care physician within 1 week
In regards to your dizziness this was likely benign vertigo, please change positions slowly particular first thing in the morning
Interventions
Interventions:
*Risk Screen - Suicide Last Done: 10/13/24 09:59
*General Assessment Last Done: 10/13/24 09:50
*Neglect/Abuse Screening Last Done: 10/13/24 09:50
ED- Fall Risk Assessment Last Done: 10/13/24 09:59
*ED COVID-19 Vaccine History Last Done: 10/13/24 10:01
*Nursing Disposition Last Done: 10/13/24 11:19
ED- Cardiac Assessment Last Done: 10/13/24 09:59
ED- Neurological Assessment Last Done: 10/13/24 09:59
ED- Pulmonary Assessment Last Done: 10/13/24 09:59
Discharge Date and Time
Discharge Date/Time: 10/13/24 11:19
Print Language: ICELANDIC
[2024-10-13 10:31] LABS: Hematocrit 43.9 % (37.0-47.0); Mean Corp Hgb Conc. 34.2 g/dL (33.0-37.0); Mean Corpuscular Hgb 32.1 pg (27.0-31.0); Mean Platelet Volume 9.9 fL (7.4-10.4); Platelet Count 200 10^3/uL (130-400); Red Blood Cell Count 4.67 10^6/uL (4.20-5.40); Red Cell Dist. Width 12.1 % (11.5-14.5); White Blood Cell Count 4.2 10^3/uL (4.8-10.8)
[2024-10-13 10:43] LABS: ALT (SGPT) 49 U/L (0-35); AST (SGOT) 42 U/L (14-36); Albumin 4.1 g/dl (3.5-5.0); Alkaline Phosphatase 63 U/L (38-126); Blood Urea Nitrogen 22 mg/dl (7-17); Calcium 9.4 mg/dl (8.4-10.2); Carbon Dioxide 29 mmol/L (22-30); Chloride 101 mmol/L (98-107); Glucose 230 mg/dl (70-99); Sodium 137 mmol/L (135-145); Total Bilirubin 1.2 mg/dl (0.2-1.3); Total Protein 6.7 g/dl (6.3-8.2); eGFR > 60.00
== END 2024-10-13 11:19 | disposition home or self-care (01) ==
LOC: EMR 09:46
PROVIDERS: Physician Assistant; EMERGENCY PHYSICIAN Emergency Medicine; FAMILY PHYSICIAN Internal Medicine
DX: R42 Dizziness and giddiness (principal)
CPT/HCPCS: 99283; 80053; 85027; 93005